=== PATIENT | male | born 1960 | race Caucasian/White ===

== ENCOUNTER 2023-07-31 11:59 | Outpatient (AMB) | payer OTHER, SELFPAY ==
--- NOTE | 2023-07-31 12:01 | MHC.PC.OV ---
Intake Visit Reasons: Right leg pain OK PER AG Coding
[2023-07-31 12:08] VITALS: BP 160/98; PULSE 85; O2SAT 98; BMI 26.6
--- NOTE | 2023-07-31 12:18 | AM.OFFWIN_ITS ---
Intake Vital Signs 07/31/23 12:08 Height 5 ft 8 in Weight 175 lb BMI 26.6 BP 160/98 H Blood Pressure Location Rt brachial Position Sitting Pulse 85 Pulse Source Pulse Oximeter Pulse Oximetry (%) 98 Oxygen Delivery Method Room Air Intake Visit Reasons: Right leg pain OK PER AG Allergies No Known Allergies Allergy (Verified 07/31/23 12:11) Medication List - Last Reconciled 07/31/23 by Ephraim Herron MD No Known Home Meds HPI Right leg pain OK PER AG HPI Details Patient is 63 year gentleman came in today to be evaluated for his right leg pain Patient says that 1 month ago he had lower back pain and he was off work for 2 weeks He went back to work, during that time there was no strong so he shoveled snow as well Next day he started having pain in his right leg all the way from upper back leg down to his feet Patient has a tenderness with calf palpation His back range of motion is intact Straight leg is slightly positive I am ordering stat ultrasound of his right lower leg to rule out DVT X-ray of lumbar spine ordered as well his blood pressure is elevated however patient says that he do not have hypertension Last time he was seen by a primary care was in August of 2018 at that time his blood pressure was 1 followed by 74 He has been taking ibuprofen that was given to him by medics when he was saritaa lionel 10 days ago Patient was sent from work for evaluation of right leg pain Ibuprofen has helped just a little bit but pain continues I have changed ibuprofen to diclofenac 75 mg b.i.d. with food Along with cyclobenzaprine 10 mg b.i.d. as needed Patient is to follow with the primary care Review of Systems Const Denies chills and Denies fever(s) ENT Denies epistaxis and Denies nasal discharge Card Denies chest pain Resp Denies chest congestion, Denies cough and Denies hemoptysis GI Denies diarrhea and Denies nausea Skin/Breast Denies rash Neuro Reports no additional complaints Psych Reports no additional complaints Endo Reports no additional complaints Physical Exam Vital Signs: Last Vital Signs Pulse 85 07/31/23 12:08 BP 160/98 H 07/31/23 12:08 Pulse Ox 98 07/31/23 12:08 Oxygen Delivery Method Room Air 07/31/23 12:08 BMI result Body Mass Index 26.6 Const General: cooperative, comfortable and no acute distress Orientation/consciousness: patient oriented x3 HEENT Head: Yes normocephalic Eyes General: appearance normal, both eyes and all related structures Neck Other: Supple Neck: Yes supple Resp Effort & Inspection: normal respiratory effort, no cough and no stridor Back/Spine/Pelvis Other: No pain with percussion lumbar spine, range of motion intact Skin General skin exam: turgor normal Neuro Other: Strength equal both lower extremity, sensory grossly intact, straight leg slightly positive right side General: patient oriented x3, tone normal and moves all extremities Extrem Other: Mild calf tenderness with pressure right side Psych Other: Normal effect, speech clear Assessment & Plan Assessment & Plan (1) Leg pain, right: Code(s): M79.604 - Pain in right leg (2) Lumbar pain: Code(s): M54.50 - Low back pain, unspecified (3) Leg heaviness: Code(s): R29.898 - Other symptoms and signs involving the musculoskeletal system (4) Tenderness of right calf: Code(s): M79.661 - Pain in right lower leg Plan Patient is 63 year gentleman came in today to be evaluated for his right leg pain Patient says that 1 month ago he had lower back pain and he was off work for 2 weeks He went back to work, during that time there was no strong so he shoveled snow as well Next day he started having pain in his right leg all the way from upper back leg down to his feet Patient has a tenderness with calf palpation His back range of motion is intact Straight leg is slightly positive I am ordering stat ultrasound of his right lower leg to rule out DVT X-ray of lumbar spine ordered as well his blood pressure is elevated however patient says that he do not have hypertension Last time he was seen by a primary care was in August of 2018 at that time his blood pressure was 1 followed by 74 He has been taking ibuprofen that was given to him by medics when he was evaluated 10 days ago Patient was sent from work for evaluation of right leg pain Ibuprofen has helped just a little bit but pain continues I have changed ibuprofen to diclofenac 75 mg b.i.d. with food Along with cyclobenzaprine 10 mg b.i.d. as needed Patient is to follow with the primary care Orders: Orders US venous duplex LE RT Today M79.604 - Pain in right leg XR lumbar spine 2-3V Today M54.50 - Low back pain, unspecified Complete Blood Count Auto Diff Today M54.50 - Low back pain, unspecified, M79.604 - Pain in right leg Comprehensive Met. Panel Today M54.50 - Low back pain, unspecified, M79.604 - Pain in right leg Medications: New cyclobenzaprine 10 mg PO BID PRN 20 tabs 0RF muscle spasm 10 days diclofenac sodium 75 mg PO BID 20 tabs 0RF pain 10 days Coding Level of Care Code New Pt Level 5 (42209) Diagnoses Leg pain, right M79.604 Lumbar pain M54.50 Leg heaviness R29.898 Tenderness of right calf M79.661 Time Spent (min) 40 Comment 15 with patient, 5 charting, 20 minute arranging for stat ultrasound
== END 2023-07-31 15:08 | disposition home or self-care (01) ==
PROVIDERS: PCP Internal Medicine; Visit Provider Internal Medicine
DX: M54.50 Low back pain, unspecified (principal); R29.898 Other symptoms and signs involving the musculoskeletal system; M79.661 Pain in right lower leg
CPT/HCPCS: 99203

== ENCOUNTER 2023-07-31 12:48 | Outpatient (REF) | payer OTHER, SELFPAY ==
--- NOTE | ~2023-07-31 | XR_ITS ---
EXAMINATION: XR LUMBOSACRAL SPINE CLINICAL INFORMATION: Lower back pain. COMPARISON: None available. TECHNIQUE: AP and lateral views of the lumbar spine and lateral view of the lumbosacral junction. FINDINGS: The vertebral bodies and posterior elements are normal. The disc spaces are preserved and the vertebral alignment is normal. There is minimal anterior spondylosis of the L5 upper and lower endplates. The paraspinal soft tissues are normal. XR/XR lumbar spine 2-3V IMPRESSION: There is minimal anterior spondylosis of the L5 upper and lower endplates. The examination is otherwise unremarkable.
--- NOTE | ~2023-07-31 | US_ITS ---
EXAMINATION: RIGHT LOWER EXTREMITY DEEP VENOUS ULTRASOUND CLINICAL INFORMATION: Right leg pain COMPARISON: None. TECHNIQUE: Duplex Doppler imaging with compression maneuvers were performed of the right lower extremity deep venous system. FINDINGS: The visualized common femoral, femoral and popliteal veins demonstrate normal compressibility and color flow without evidence of venous thrombosis. Visualized portions of the calf veins demonstrate normal color fill-in suggesting patency. There is no evidence of a Gan's cyst. US/US venous duplex LE RT IMPRESSION: No evidence of deep venous thrombosis involving the right lower extremity.
[2023-07-31 13:36] LABS: MANUAL DIFF FLAG NO
[2023-07-31 13:48] LABS: Basophils Percent Auto 0.3 % (0-2); Eosinophils Absolute Auto 0.1 X10*3/uL (0.0-0.4); Hematocrit 43.3 % (42.0-52.0); Hemoglobin 14.1 g/dl (14.0-18.0); Imm Gran Abs Auto 0.04 X10*3/uL (0.00-0.03); Imm Gran Pct Auto 0.4 % (0.0-0.4); Lymphocytes Absolute Auto 3.2 X10*3/uL (1.2-4.9); Lymphocytes Percent Auto 32.3 % (20-40); Mean Corpuscular HGB Conc 32.6 g/dl (31.0-36.0); Mean Corpuscular Hemoglobin 26.9 pg (27.0-33.0); Mean Corpuscular Volume 82.5 fL (80.0-98.0); Mean Platelet Volume 9.9 fL (9.4-12.4); Monocytes Absolute Auto 0.7 X10*3/uL (0.1-1.2); Monocytes Percent Auto 7.1 % (2-11); Neutrophils Absolute Auto 5.8 x10*3/uL (2.0-8.3); Neutrophils Percent Auto 58.9 % (45-73); Platelet Count 290 X10*3/uL (160-400); Red Blood Count 5.25 X10*6/uL (4.60-5.80); Red Cell Distribution Width 11.9 % (11.0-16.0); White Blood Count 9.8 X10*3/uL (4.8-10.8)
[2023-07-31 15:10] LABS: Alanine Aminotransferase 15 U/L (0-40); Albumin Level 4.7 g/dL (3.5-5.0); Alkaline Phosphatase 75 U/L (39-117); Anion Gap 11 (12-20); Aspartate Amino Transferase 12 U/L (5-37); Bilirubin Total 0.4 mg/dL (0.0-1.0); Blood Urea Nitrogen 16 mg/dL (9-16); Calcium 9.5 mg/dL (8.4-10.2); Carbon Dioxide 29 mmol/L (22-29); Chloride 106 mmol/L (96-108); Estimated Glomerular Filt Rate > 60; Glucose Random 80 mg/dL (60-115); Sodium 142 mmol/L (135-145); Total Protein 7.8 g/dL (6.5-8.0)
== END 2023-07-31 12:49 | disposition home or self-care (01) ==
LOC: HO.HMGCX 12:48
PROVIDERS: PCP Internal Medicine; Visit Provider Internal Medicine
DX: M79.604 Pain in right leg (principal); M54.50 Low back pain, unspecified
CPT/HCPCS: 36415; 72100; 80053; 85025; 93971

== ENCOUNTER 2023-08-06 08:47 | Outpatient (AMB) | payer OTHER, SELFPAY ==
[2023-08-06 08:51] VITALS: BP 142/100; PULSE 87; O2SAT 99; BMI 27.1
--- NOTE | 2023-08-06 08:51 | MHC.PC.OV ---
Vital Signs 08/06/23 08:51 Height 5 ft 8 in Weight 178 lb 8 oz BMI 27.1 BP 142/100 H Blood Pressure Location Lt brachial Position Sitting Pulse 87 Pulse Source Pulse Oximeter Pulse Oximetry (%) 99 Oxygen Delivery Method Room Air Intake Visit Reasons: Est Care/ Follow up Walk-in Clearance work Allergies No Known Allergies Allergy (Verified 08/06/23 09:04) Medication List - Last Reconciled 08/06/23 by OSBALDO Courtney cyclobenzaprine 10 mg PO BID PRN 10 days diclofenac sodium 75 mg PO BID 10 days Tobacco use date assessed: 08/06/23 Dental Screening Dental Screen Date: 08/06/23 Did you have a dental visit in the last 12 months?: Yes Did you have a dental problem in the last 6 months where you did not have access to dental care?: No Was dental information given to patient?: Patient has dentist HPI HPI Comments History of Present Illness Details Patient is a 63-year-old male here to establish care. The patient was seen in the walk-in 6 days ago for lower back pain that radiated all the way down his right leg. He stated that this had been after shoveling snow for various hours. He was given an ultrasound to rule out DVT and an x-ray of his lumbar spine. Patient did not have DVT, and x-ray demonstrated minimal anterior spondylosis of L5. Patient's chief complaint is lower back pain that has improved since his visit to the walk-in. He also admits radiculopathy down his right leg. He has been taking cyclobenzaprine p.r.n. at night, and diclofenac with good effect. He currently works as a package maker for [employer] and his time resting over the past 5 days has helped his symptoms a lot. Patient denies any difficulty with urination, shortness of breath, chest pain. Patient denies saddle numbness. Patient has no history of similar injury before. Patient is denying physical therapy at this time. He states that his lower back pain is improved over the last few days and he believes with a few more days rest he should be back to baseline. Patient is up-to-date with his immunizations. [facility] Social History Housing: House Patient Tobacco Use Status: Current everyday Tobacco user e-Cigarette/Vaping Use: Never Used service: No Current occupational status: employed Cognitive needs: No Hearing needs: No Vision needs: No Questionnaire PHQ-9 Over the last 2 weeks, how often have you been bothered by any of the following problems? 1. Little interest or pleasure in doing things: not at all 2. Feeling down, depressed, or hopeless: not at all 3. Trouble falling or staying asleep, or sleeping too much: several days 4. Feeling tired or having little energy: several days 5. Poor appetite or overeating: not at all 6. Feeling bad about yourself - or that you are a failure or have let yourself or your family down: not at all 7. Trouble concentrating on things, such as reading the newspaper or watching television: not at all 8. Moving or speaking so slowly that other people could have noticed. Or the opposite - being so fidgety or restless that you have been moving around a lot more than usual: not at all 9. Thoughts that you would be better off or of hurting yourself in some way: not at all Total score: 2 Depression Screening Interpretation: Negative Depression Screening Done: Yes 29002 - PHQ-9 Billing: Yes Source: Developed by Drs. Zain Cooper, Yuki Hansen, Rashi Clayton and colleagues, with an educational alejandra from [email or web address]. Thrive Questionnaire Date Thrive assessed: 08/06/23 I am a: Patient What is your living situation today?: I have a steady place to live Within the past 12 months, did the food you bought not last and you didn't have the money to get more?: Never true Within the past 12 months, did you worry whether your food would run out before you got money to buy more?: Never true Do you have trouble paying for medicines?: No Do you have trouble getting transportation to medical appointments?: No Do you have trouble paying your heating and electricity bill?: No Do you have trouble taking care of your child, family member or friend?: No Do you have trouble with day-to-day activities such as bathing, preparing meals, shopping, managing finances, etc.?: No Are you currently unemployed and looking for a job?: No Are you interested in more education?: No Please select the resources that you would like help with: None Currently or been in a relationship where the following occur: no concerns reported THRIVE Score: 0 AUDIT C Alcohol Use Questionnaire (AUDIT-C) 1. How often do you have a drink containing alcohol?: Never 3. How often do you have six or more drinks on one occasion?: Never Total Score: 0 Score Reviewed/Action Taken: Yes YEFRI-7 AMB Questionnaire YEFRI-7 Date YEFRI - 7 assessed: 08/06/23 Feeling nervous, anxious, or on edge: 0 = Not at all Not being able to stop or control worryin = Not at all Worrying too much about different things: 0 = Not at all Trouble relaxin = Not at all Being so restless that it is hard to sit still: 0 = Not at all Becoming easily annoyed or irritable: 0 = Not at all Feeling afraid as if something awful might happen: 0 = Not at all Total YEFRI-7 score (0-4 normal; 5-9 mild; 10-14 moderate; 15-21 severe): 0 Source: Developed by Drs. Zain Cooper, Yuki Hansen, Rashi Clayton and colleagues, with an educational alejandra from [email or web address]. YEFRI-7 Assessment Billing YEFRI-7 Assessment Tool: YEFRI-7 Assessment 31904 Review of Systems Const Details: Constitutional : No Weight loss, No Fever, No Chills, No Fatigue, No Malaise Cardiovascular : No Chest Pain, No SOB, No Dyspnea on Exertion, No Orthopnea, No Edema, No Palpitations Respiratory : No Cough, No Sputum, No Wheezing Gastrointestinal : No Nausea, No Vomiting, No Diarrhea, No Constipation, No abdominal Pain, No Hematochezia, No Melena Genitourinary : No Dysuria, No Urinary Frequency, No Hematuria, Musculoskeletal : Admits some lower back discofort with movement. Skin : No Skin Lesions, No rash Neuro : No Weakness,Admits some tingling down right leg, No Dizziness, No Headache Psych : No Anxiety/Panic, No Depression Heme/Lymph: No Bruising, No Bleeding,No Lymphadenopathy Endocrine : No Polyuria, No Polydipsia All other systems reviewed and are negative Physical exam (Primary Care) Vital Signs: Last Vital Signs Pulse 87 08/06/23 08:51 BP 142/100 H 08/06/23 08:51 Pulse Ox 99 08/06/23 08:51 Oxygen Delivery Method Room Air 08/06/23 08:51 Care Plan Goal for BP management: Patient declined BP medicine at this time. BMI result Body Mass Index 27.1 Tobacco/Smoking Status: Tobacco use Status Tobacco use date assessed 08/06/23 08/06/23 08:53 Patient Tobacco Use Status Current everyday Tobacco 08/06/23 08:53 e-Cigarette/Vaping Use Never Used 08/06/23 08:53 PHQ-9: PHQ-9 Score PHQ-9: Total score 2 08/06/23 08:55 Depression Screening Interpretation: Negative Thrive Assessment: Date of Thrive Assessment Date Thrive assessed 08/06/23 08/06/23 08:55 Currently or been in a relationship where the following occur: no concerns reported Const General: cooperative and no acute distress Orientation/consciousness: patient oriented x3 Limitations: no limitations Neck Neck: Yes normal visual inspection and Yes full ROM Resp Auscultation: diminished lung sounds bilateral in the upper lung rajput Cardio Rate: regular rate Rhythm: regular rhythm Heart sounds: S1 normal heart sound present and S2 normal heart sound present General: Yes no CVA tenderness Back/Spine/Pelvis Back: no CVA tenderness Cervical Spine: normal cervical lordosis and cervical ROM normal Thoracic/Lumbar Spine: thoracic and lumbar spine normal to inspection, thoraco-lumbar ROM normal and straight leg raise positive right Skin General skin exam: no rashes or lesions noted Neuro General: patient oriented x3 and CN's II-XI intact bilaterally Gait exam (Neuro): Normal gait present Motor exam (neuro): 5/5 motor strength present throughout Deep tendon reflexes (DTR's): Right patellar reflex intensity grade: 2+ and Left patellar reflex intensity grade: 2+ Extrem Right lower extremity: normal to inspection and full ROM Psych Thought content: Normal thought content present Insight: Good insight present (Psych) Judgement: Good judgement present (Psych) Assessment and Plan Assessment & Plan (1) Lumbar pain: Comment: Patient will continue to utilize medications given to him at the walk-in clinic. Patient has been educated on side effects of these medications and how to take them properly. He will continue to rest. Patient has been educated on signs of worsening symptoms when to report to the office or when to present to the ED. Code(s): M54.50 - Low back pain, unspecified Plan: Take your medications as prescribed. If you were prescribed antibiotics today, it is important that you take your medication to their entirety, do not skip any doses, do not finish them early. Follow-up with your primary care provider this week. Return to the emergency department with new or worsening symptoms. Such as fevers, chills, chest pain, shortness of breath, nausea, vomiting, dizziness, headache, vision changes, lethargy In case of emergency call 911 Plan Patient does not improve the next week he will agree to physical therapy. Patient will have physical and 4 months Coding Level of Care Code Est Pt Level 3 (47402) Diagnoses Lumbar pain M54.50 Additional Codes YEFRI-7 Assessment Billing - YEFRI-7 Assessment Tool: YEFRI-7 Assessment 27099 ([id number]) Time Spent (min) 35
== END 2023-08-06 16:04 | disposition home or self-care (01) ==
PROVIDERS: PCP Internal Medicine; Visit Provider Nurse Practitioner Primary Care
DX: Z00.00 Encounter for general adult medical examination without abnormal findings (principal); M54.50 Low back pain, unspecified
CPT/HCPCS: 99396

== ENCOUNTER 2023-08-15 10:47 | Outpatient (AMB) | payer OTHER, SELFPAY ==
--- NOTE | 2023-08-15 10:49 | MHC.PC.OV ---
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 Accompanied by: Self / Same As Patient Allergies No Known Allergies Allergy (Verified 08/15/23 11:22) Medication List - Last Reconciled 08/15/23 by OSBALDO Courtney No Known Home Meds Tobacco use date assessed: 08/15/23 Dental Screening Dental Screen Date: 08/15/23 Did you have a dental visit in the last 12 months?: Yes Did you have a dental problem in the last 6 months where you did not have access to dental care?: No Was dental information given to patient?: Patient has dentist HPI HPI Comments History of Present Illness Details Patient is a 63-year-old male in today for follow-up for lower back pain. 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 He has been seen in office and our walk-in clinic for complaints of lower back pain which radiates down his right leg. Patient had x-ray completed, was given medication. He states today that his symptoms have not improved, and that now he would like to try pursuing physical therapy, will refer. He states that he did get relief from the medication, but that the discomfort would return as soon as the medication wore off. Looking to find a longer-term solution. Denies any numbness, tingling, chest pain, shortness a breath, nausea, vomiting, diarrhea PFSH Surgical History No pertinent past surgical history Social History Housing: House Patient Tobacco Use Status: Current everyday Tobacco user e-Cigarette/Vaping Use: Never Used service: No Current occupational status: employed Cognitive needs: No Hearing needs: No Vision needs: No Questionnaire Thrive Questionnaire Date Thrive assessed: 08/06/23 YEFRI-7 AMB Questionnaire YEFRI-7 Date YEFRI - 7 assessed: 08/06/23 Source: Developed by Drs. Zain Cooper, Yuki Hansen, Rashi Clayton and colleagues, with an educational alejandra from [employer]. Review of Systems Const Details: Constitutional : No Weight loss, No Fever, No Chills, No Fatigue, No Malaise Cardiovascular : No Chest Pain, No SOB, No Dyspnea on Exertion, No Orthopnea, No Edema, No Palpitations Respiratory : No Cough, No Sputum, No Wheezing Genitourinary : No Dysuria, No Urinary Frequency, No Hematuria, Musculoskeletal : Admits lower back pain which radiates down right leg. Skin : No Skin Lesions, No rash Neuro : No Weakness, No Numbness, No Dizziness, No Headache Psych : No Anxiety/Panic, No Depression Heme/Lymph: No Bruising, No Bleeding,No Lymphadenopathy Endocrine : No Polyuria, No Polydipsia All other systems reviewed and are negative Physical exam (Primary Care) Vital Signs: Last Vital Signs Pulse 82 08/15/23 10:51 BP 140/86 H 08/15/23 10:51 Pulse Ox 98 08/15/23 10:51 BMI result Body Mass Index 27.1 Tobacco/Smoking Status: Tobacco use Status Tobacco use date assessed 08/15/23 08/15/23 10:57 Patient Tobacco Use Status Current everyday Tobacco 08/15/23 10:51 e-Cigarette/Vaping Use Never Used 08/15/23 10:51 Thrive Assessment: Date of Thrive Assessment Date Thrive assessed 08/06/23 08/15/23 10:51 Const Other: Appearance: Alert.? Oriented X3.? No acute distress.? CVS: Normal heart rate and rhythm.? Pulses normal.? Respiratory: No respiratory distress.? Breath sounds normal.? Skin: Skin warm and dry.? Normal skin color.? Normal skin turgor.? Extremities: No lower extremity edema.? No calf ttp. 5/5 strength to bilateral upper and lower extremities Back: No midline tenderness, no C-spine tenderness, Limited range of motion with flexion and extension. Positive straight leg test on right leg. Neuro: Oriented X 3.? No motor deficit.? No sensory deficit. CN 2-12 intact Assessment and Plan Assessment & Plan (1) Lumbar pain: Comment: Patient was given cyclobenzaprine and naproxen to be taken as directed. Will give referral to physical therapy. Explained to patient that if physical therapy does not help, may need to order MRI. Patient has been educated on signs of worsening symptoms and when to report back to the walk-in or when to present to the ED. Code(s): M54.50 - Low back pain, unspecified Plan: Take your medications as prescribed. If you were prescribed antibiotics today, it is important that you take your medication to their entirety, do not skip any doses, do not finish them early. Follow-up with your primary care provider this week. Return to the emergency department with new or worsening symptoms. Such as fevers, chills, chest pain, shortness of breath, nausea, vomiting, dizziness, headache, vision changes, lethargy In case of emergency call 911 Plan Follow-up in 3 months Orders: Orders PT Evaluation and Treatment Today M54.50 - Low back pain, unspecified Medications: New naproxen 500 mg PO BID PRN 20 tabs 0RF pain cyclobenzaprine 10 mg PO BEDTIME PRN 10 tabs 0RF muscle spasm Coding Level of Care Code Est Pt Level 3 (43511) Diagnoses Lumbar pain M54.50
[2023-08-15 10:51] VITALS: BP 140/86; PULSE 82; O2SAT 98; BMI 27.1
== END 2023-08-15 12:42 | disposition home or self-care (01) ==
PROVIDERS: PCP Internal Medicine; Visit Provider Nurse Practitioner Primary Care
DX: M54.50 Low back pain, unspecified (principal)
CPT/HCPCS: 99213

== ENCOUNTER 2023-09-03 12:18 | Outpatient (AMB) | payer OTHER, SELFPAY ==
[2023-09-03 12:23] VITALS: BP 130/86; PULSE 83; O2SAT 97; BMI 26.8
--- NOTE | 2023-09-03 12:23 | A.OFFPC_ITS ---
Vital Signs 09/03/23 12:23 Height 5 ft 8 in Weight 176 lb 4 oz BMI 26.8 BP 130/86 Blood Pressure Location Rt brachial Position Sitting Pulse 83 Pulse Source Pulse Oximeter Pulse Oximetry (%) 97 Oxygen Delivery Method Room Air Intake Visit Reasons: Follow up work restrictions Intake Note: Pt is here to follow up for his restrictions for work Allergies No Known Allergies Allergy (Verified 09/03/23 12:29) Medication List - Last Reconciled 09/03/23 by OSBALDO Courtney No Known Home Meds Tobacco use date assessed: 09/03/23 Dental Screening Dental Screen Date: 09/03/23 Did you have a dental visit in the last 12 months?: Yes Did you have a dental problem in the last 6 months where you did not have access to dental care?: No Was dental information given to patient?: Patient has dentist HPI HPI Comments History of Present Illness Details Patient is a 63-year-old male here for follow-up visit for return to work with restrictions. 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 Patient has had lower back pain for the past month. Some good relief with naproxen, starting physical therapy. Patient still needs restrictions for work, should not lift more than 10 lbs. Patient will be re-evaluated to 1 month. He denies numbness and tingling. [facility] Surgical History No pertinent past surgical history Social History Housing: House Patient Tobacco Use Status: Former Tobacco user e-Cigarette/Vaping Use: Never Used service: No Current occupational status: employed Cognitive needs: No Hearing needs: No Vision needs: No Questionnaire PHQ-9 Over the last 2 weeks, how often have you been bothered by any of the following problems? 1. Little interest or pleasure in doing things: not at all 2. Feeling down, depressed, or hopeless: not at all 3. Trouble falling or staying asleep, or sleeping too much: not at all 4. Feeling tired or having little energy: not at all 5. Poor appetite or overeating: not at all 6. Feeling bad about yourself - or that you are a failure or have let yourself or your family down: not at all 7. Trouble concentrating on things, such as reading the newspaper or watching television: not at all 8. Moving or speaking so slowly that other people could have noticed. Or the opposite - being so fidgety or restless that you have been moving around a lot more than usual: not at all 9. Thoughts that you would be better off or of hurting yourself in some way: not at all Total score: 0 Depression Screening Interpretation: Negative Depression Screening Done: Yes 08480 - PHQ-9 Billing: Yes Source: Developed by Drs. Zain Cooper, Yuki Hansen, Rashi Clayton and colleagues, with an educational alejandra from [employer]. Thrive Questionnaire Date Thrive assessed: 08/06/23 AUDIT C Alcohol Use Questionnaire (AUDIT-C) 1. How often do you have a drink containing alcohol?: Never 3. How often do you have six or more drinks on one occasion?: Never Total Score: 0 YEFRI-7 AMB Questionnaire YEFRI-7 Date YEFRI - 7 assessed: 08/06/23 Feeling nervous, anxious, or on edge: 0 = Not at all Not being able to stop or control worryin = Not at all Worrying too much about different things: 0 = Not at all Trouble relaxin = Not at all Being so restless that it is hard to sit still: 0 = Not at all Becoming easily annoyed or irritable: 0 = Not at all Feeling afraid as if something awful might happen: 0 = Not at all Total YEFRI-7 score (0-4 normal; 5-9 mild; 10-14 moderate; 15-21 severe): 0 Source: Developed by Drs. Zain Cooper, Yuki Hansen, Rashi Clayton and colleagues, with an educational alejandra from [employer]. YEFRI-7 Assessment Billing YEFRI-7 Assessment Tool: YEFRI-7 Assessment 06353 Review of Systems Const Details: Constitutional : No Weight loss, No Fever, No Chills, No Fatigue, No Malaise Cardiovascular : No Chest Pain, No SOB, No Dyspnea on Exertion, No Orthopnea, No Edema, No Palpitations Respiratory : No Cough, No Sputum, No Wheezing Musculoskeletal : Admits lower back pain Neuro : No Weakness, No Numbness, No Dizziness, No Headache Psych : No Anxiety/Panic, No Depression All other systems reviewed and are negative Physical exam (Primary Care) BMI result Body Mass Index 26.8 Tobacco/Smoking Status: Tobacco use Status Tobacco use date assessed 08/15/23 08/15/23 10:57 Patient Tobacco Use Status Current everyday Tobacco 08/15/23 10:51 e-Cigarette/Vaping Use Never Used 08/15/23 10:51 Depression Screening Interpretation: Negative Thrive Assessment: Date of Thrive Assessment Date Thrive assessed 08/06/23 08/15/23 10:51 Const Other: Appearance: Alert.? Oriented X3.? No acute distress.? CVS: Normal heart rate and rhythm.? Pulses normal.? Respiratory: No respiratory distress.? Breath sounds normal.? ?Back: No midline tenderness, no C-spine tenderness, Linited range of motion to flexion, extension, and rotation., no CVA tenderness bilaterally Neuro: Oriented X 3.? No motor deficit.? No sensory deficit. CN 2-12 intact Assessment and Plan Assessment & Plan (1) Lumbar pain: Comment: Patient just recently got new inserts for shoes. Has been using naproxen with little relief will try meloxicam. Patient has been educated on the side effects of these medications. He is currently going through course of physical therapy. Will give noticed for his work to have light duty. No lifting more than 5 lb. No standing for more than 15 minutes at a time. No bending below the knee. Code(s): M54.50 - Low back pain, unspecified Plan: Take your medications as prescribed. If you were prescribed antibiotics today, it is important that you take your medication to their entirety, do not skip any doses, do not finish them early. Follow-up with your primary care provider this week. Return to the emergency department with new or worsening symptoms. Such as fevers, chills, chest pain, shortness of breath, nausea, vomiting, dizziness, headache, vision changes, lethargy In case of emergency call 911 Plan Patient will follow-up in 1 month for reassessment. Medications: New meloxicam Do not combine with other NSAIDS 15 mg PO DAILY PRN 30 tabs 0RF pain, moderate Coding Level of Care Code Est Pt Level 3 (71187) Diagnoses Lumbar pain M54.50 Additional Codes YEFRI-7 Assessment Billing - YEFRI-7 Assessment Tool: YEFRI-7 Assessment 10014 ([id number]) Time Spent (min) 25
== END 2023-09-03 12:49 | disposition home or self-care (01) ==
PROVIDERS: PCP Nurse Practitioner Primary Care; Visit Provider Nurse Practitioner Primary Care
DX: M54.50 Low back pain, unspecified (principal); Z04.2 Encounter for examination and observation following work accident
CPT/HCPCS: 99213

== ENCOUNTER 2023-09-27 10:00 | Outpatient (RCR) | payer OTHER, SELFPAY ==
--- NOTE | 2023-08-31 09:50 | MHC.PT.EP ---
[facility] [place] [facility] [place] [facility] [place] Office [address] Bhargavi Baca [address] [phone] F: [phone] F: [phone] F: [phone] F: [phone] Physical Therapy Plan of Care Date of Evaluation: 08/31/23 Date of Surgery: n/a Diagnosis: low back pain Assessment: Patient is a 63 year old male presenting to PT with complaints of pain in his low back. Pt reports onset of pain began about 6 weeks ago due to lifting at work. He presents today with impairments in pain, lumbar ROM, core strength, hip strength, posture. 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 Pt expresses intermediate project manager goal of reducing pain, and is motivated to work towards this in PT. Clinical presentation today is most consistent with signs and sx associated with low back pain and pt will benefit from skilled PT 2 week x 4 weeks to address the following problems and impairments noted upon evaluation: pain, lumbar ROM, core strength, hip strength, posture. These problems limit the patient with the following functional activities: work, ADLs, reaching, lifting. The prescribed treatment plan of care is medically necessary. Co-morbidities of none were identified and taken into considerations of plan of care. Pt was educated on HEP, role of PT, prognosis, POC. Frequency and Duration: The patient will be seen 2 x week x 4 weeks Short Term Goals: Pt will demonstrate centralization of pain in 2 weeks. Pt will demonstrate improved hip MMT strength by 1/3 grade in 2 weeks. Pt will demonstrate ability to perform PPT with good core control in 2 weeks. Chief Librarian Work With Blind Goals: Pt will demonstrate improved Landon score by 10% in 4 weeks for improved functional mobility. Pt will demonstrate ability to stand to wash dishes with min to no pain/ sx in 4 weeks for improved role at home. Pt will demonstrate ability to work a full day with min to no pain/ worsening sx in 4 weeks for return to work. Treatment Plan: Modalities to reduce pain, spasms and effusion. Manual therapy to restore motion and function. Therapeutic exercise to improve strength and flexibility. Neuromuscular re-education for posture and balance. Therapeutic activities to return to functional activities of daily living. Electronically signed by: Rosita Tatum, PT, DPT, ATC Please sign and return to therapist. Thank you for your referral.
--- NOTE | 2023-09-27 10:53 | MHC.PT.DC ---
[facility] [place] [facility] [place] [facility] [place] [facility] [address] Bhargavi Baca [address] [phone] F: [phone] F: [phone] F: [phone] F: [phone] Physical Therapy Discharge Report Diagnosis: low back pain Date of Surgery: n/a Date of Evaluation: 08/31/23 Date of Discharge: 09/27/23 Treatments to Date: 9 Cancellations to Date: 0 No Shows to Date: 0 Discharge Status: Achieved Goals Improved Function Independent with HEP Recommend MD Follow-up Discharge Summary: 09/27/2023: He has made some progress since start of care but unfortunately his progress appears to have reached a plateau. He continues to feel sx as far as his calf although they are less intense. He has met some of goals but is still experiencing limitations which are preventing him from functioning at his prior level. At this time max benefits of PT have been provided. Skilled PT is no longer indicated as he is no longer making gains. Discussed that if his pain/sx continue to limit him then recommend following up with his doctor for further evaluation and management of his sx. Electronically signed by: Rosita Tatum, PT, DPT, ATC Please sign and return to therapist. Thank you for your referral.
== END 2023-09-27 10:53 | disposition home or self-care (01) ==
LOC: HO.PTCHIC 10:00
PROVIDERS: PCP Nurse Practitioner Primary Care; Visit Provider Nurse Practitioner Primary Care
DX: M54.50 Low back pain, unspecified (principal)
CPT/HCPCS: 97110; 97161

== ENCOUNTER 2023-10-17 07:46 | Outpatient (AMB) | payer OTHER, SELFPAY ==
[2023-10-17 08:08] VITALS: BP 130/82; PULSE 70; O2SAT 97; BMI 27.7
--- NOTE | 2023-10-17 08:08 | A.OFFPC_ITS ---
Vital Signs 10/17/23 08:08 Height 5 ft 8 in Weight 182 lb 2 oz BMI 27.7 BP 130/82 Blood Pressure Location Rt brachial Position Sitting Pulse 70 Pulse Source Pulse Oximeter Pulse Oximetry (%) 97 Oxygen Delivery Method Room Air Intake Visit Reasons: Follow up after PT Intake Note: Pt is here to follow up after he finished PT 2 weeks ago Allergies No Known Allergies Allergy (Verified 10/17/23 08:19) Medication List - Last Reconciled 10/17/23 by OSBALDO Courtney No Known Home Meds Tobacco use date assessed: 10/17/23 Dental Screening Dental Screen Date: 10/17/23 Did you have a dental visit in the last 12 months?: Yes Did you have a dental problem in the last 6 months where you did not have access to dental care?: No Was dental information given to patient?: Patient has dentist HPI HPI Comments History of Present Illness Details Patient is a 63-year-old male here for a follow up visit. Patient has a past medical history of lower back pain and recently completed physical th erapy. Patient had been working on light duty for the past month with restrictions not to lift more than 10 lbs, however, for the past 2 weeks patient has not been all the work due to right SI pain with radiculopathy. Patient is here for evaluation post physical therapy. Patient states that physical therapy has made the pain bearable, however when he has to move or lift objects the pain quickly returns. Patient states that appointment today he has pain in the right SI joint which radiates down the right lower extremity. Patient has taken naproxen in the past with mild effect, he is not interested in continuing that medication. Patient is interested in further treatment. Will give prednisone today, and referral to pain management. [facility] Surgical History No pertinent past surgical history Social History Housing: House Patient Tobacco Use Status: Current everyday Tobacco user Cigarettes Per Day: 6 e-Cigarette/Vaping Use: Never Used service: No Current occupational status: employed Cognitive needs: No Hearing needs: No Vision needs: No Questionnaire Thrive Questionnaire Date Thrive assessed: 08/06/23 YEFRI-7 AMB Questionnaire YEFRI-7 Date YEFRI - 7 assessed: 08/06/23 Source: Developed by Drs. Zain Cooper, Yuki Hansen, Rashi Clayton and colleagues, with an educational alejandra from [employer]. YEFRI-7 Assessment Billing YEFRI-7 Assessment Tool: pt declined-do not bill Review of Systems Const All systems reviewed & are unremarkable except as noted in HPI and below Musc Reports arthralgias (Right SI joint) and Reports radiating pain into limb (Right lower extremity) Physical exam (Primary Care) BMI result Body Mass Index 27.7 Tobacco/Smoking Status: Tobacco use Status Tobacco use date assessed 09/03/23 09/03/23 12:28 Patient Tobacco Use Status Former Tobacco user 09/03/23 12:28 e-Cigarette/Vaping Use Never Used 09/03/23 12:28 Thrive Assessment: Date of Thrive Assessment Date Thrive assessed 08/06/23 09/03/23 12:28 Const General: cooperative and no acute distress Resp Effort & Inspection: normal respiratory effort Auscultation: clear to auscultation bilaterally Cardio Rate: regular rate Rhythm: regular rhythm Heart sounds: S1 normal heart sound present and S2 normal heart sound present General: Yes no CVA tenderness Back/Spine/Pelvis Back: no CVA tenderness Cervical Spine: normal cervical lordosis Sacroiliac joints: on the right tender to palpation and by passive hyperextension of lower ext Extrem Right lower extremity: normal to inspection Left lower extremity: normal to inspection Psych Thought content: Normal thought content present Insight: Good insight present (Psych) Judgement: Good judgement present (Psych) Assessment and Plan Assessment & Plan (1) Back pain with right-sided radiculopathy: Comment: Patient recently completed course of physical therapy with mild improvement. Will give prednisone for radiculopathy. Will order MRI. Will refer to pain management. Code(s): M54.10 - Radiculopathy, site unspecified Plan: Take your medications as prescribed. If you were prescribed antibiotics today, it is important that you take your medication to their entirety, do not skip any doses, do not finish them early. Follow-up with your primary care provider this week. Return to the emergency department with new or worsening symptoms. Such as fevers, chills, chest pain, shortness of breath, nausea, vomiting, dizziness, headache, vision changes, lethargy In case of emergency call 911 Plan Follow-up in 3 months Orders: Orders MR lumbar spine wo con Today M54.10 - Radiculopathy, site unspecified Medications: New prednisone 20 mg PO BID 10 tabs 0RF Coding Level of Care Code Est Pt Level 3 (06747) Diagnoses Back pain with right-sided radiculopathy M54.10 Time Spent (min) 24
== END 2023-10-17 08:40 | disposition home or self-care (01) ==
PROVIDERS: PCP Nurse Practitioner Primary Care; Visit Provider Nurse Practitioner Primary Care
DX: M54.10 Radiculopathy, site unspecified (principal)
CPT/HCPCS: 99213

== ENCOUNTER 2023-11-19 10:43 | Outpatient (AMB) | payer OTHER, SELFPAY ==
--- NOTE | 2023-11-19 10:47 | A.OFFVIS_ITS ---
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 Patient attributes pain due to work-related injury in July at [employer] and has completed physical therapy and NSAIDs and was sent back to work 2 weeks after the injury. Patient reports worsening back pain and onset of right leg pain 1 week after he has returned to work. Patient reports he has off work for PT and significant low back pain, but is able to tolerate light duty with restrictions. His back pain is axial, midline and also radiates into his right lower extremity posteriorly with numbness, tingling in his heel, calf and toes and intermittent squeezing in his right calf. Pain is most severe with prolonged standing, bending, twisting, heavy lifting, pulling, and least severe with sitting or walking. He reports PT has been partially helpful and he continues to do regular home exercise program. Pain affects his ADLs, mobility, functioning, work, sleep, and social interactions. Denies any fever, chills, abdominal or groin pain, gait imbalances, foot drop, bladder or bowel dysfunction or saddle anesthesia. Patient was ordered lumbar spine MRI last month, however this was not completed yet. Patient smokes 1/2 PPD for many years, , uses marijuana from dispensary and denies alcohol consumption or illicit drug use. Oswestry Low Back Disability Score=13 (mild disability) Location: Lower back pain radiates down right leg posteriorly Duration: Work related injury in July, worsening pain >3 months Characteristics of symptom or complaint: Aching, radiating, tingling, shooting, numb, squeezing Aggravating or associated factors: Movement, standing, bending, pulling, lifting, off-loading boxes Relieving factors: Sitting, NSAIDs, ice/heat, rest, activity modifications, prednisone trial Treatment: Physical therapy, home exercise program [facility] Medical History (Updated 11/19/23 @ 13:11 by OSBALDO Bower) Work related injury Back pain with right-sided radiculopathy Sacroiliac joint pain Surgical History No pertinent past surgical history Social History Housing: House Patient Tobacco Use Status: Current everyday Tobacco user Cigarettes Per Day: 6 e-Cigarette/Vaping Use: Never Used service: No Current occupational status: employed Cognitive needs: No Hearing needs: No Vision needs: No Review of Systems Const All systems reviewed & are unremarkable except as noted in HPI and below Physical Exam Vital Signs: Last Vital Signs Pulse 80 11/19/23 10:53 BP 160/91 H 11/19/23 10:53 Pulse Ox 99 11/19/23 10:53 Oxygen Delivery Method Room Air 11/19/23 10:53 BMI result Body Mass Index 27.1 General: Appears afebrile. Alert and oriented. Mood and affect appropriate. Follows and participates in conversation appropriately. Respiratory effort is unlabored. No cough. Able to transition from sit to stand unassisted. Ambulates with bilaterally normal heel strike and toe off. Back/Spine/Pelvis Other: Patient is able to walk and stand on heels and tip toes with mild difficulty on the right otherwise demonstrating good motor tone. No limping. Can flex forward to 65-70 degrees and extend to 5-10 degrees before experiencing lumbar pain, increased pain with forward flexion and bending. Demonstrates 5/5 strength of quadriceps bilaterally as well as flexion/dorsiflexion of bilateral feet against resistance. 2+ pedal pulses bilaterally. Seated straight leg rise with dorsiflexion positive on the right. +2 left +3 right patellar and +1 achilles reflexes bilaterally. Facet loading test positive bilaterally. Fredrick sign, Jewel?s, Pelvic compression and Stinchfield tests are positive on the right. No groin pain with I/E hip rotations. Valsalva maneuver negative. Cervical Spine: cervical ROM normal, No cervical muscular tenderness and No Cervical spine tenderness Thoracic/Lumbar Spine: thoracic and lumbar spine normal to inspection, No Thoracic/lumbar spine scar(s), Lasegue's sign positive (L5-S1) on the right and localized, pain with thoraco-lumbar ROM, paraspinal muscle tenderness on the right greater than left, thoraco-lumbar ROM limited, No thoracic spinal tenderness and lumbar spinal tenderness (L4-S1) Pelvis: buttock tenderness on the right Sacroiliac joints: on the right tender to palpation and on the left nontender Results Reviewed Results Reviewed: XR LUMBOSACRAL SPINE 07/31/23 CLINICAL INFORMATION: Lower back pain. COMPARISON: None available. TECHNIQUE: AP and lateral views of the lumbar spine and lateral view of the lumbosacral junction. FINDINGS: The vertebral bodies and posterior elements are normal. The disc spaces are preserved and the vertebral alignment is normal. There is minimal anterior spondylosis of the L5 upper and lower endplates. The paraspinal soft tissues are normal. IMPRESSION: There is minimal anterior spondylosis of the L5 upper and lower endplates. The examination is otherwise unremarkable. Assessment & Plan Assessment & Plan (1) Back pain with right-sided radiculopathy: Comment: Patient recently completed course of physical therapy with mild improvement. Will give prednisone for radiculopathy. Will order MRI. Will refer to pain management. Code(s): M54.10 - Radiculopathy, site unspecified Category: Medical (2) Intractable low back pain: Code(s): M54.59 - Other low back pain Category: Medical (3) Back pain with right-sided radiculopathy: Comment: Patient recently completed course of physical therapy with mild improvement. Will give prednisone for radiculopathy. Will order MRI. Will refer to pain management. Code(s): M54.10 - Radiculopathy, site unspecified Category: Medical (4) Discogenic low back pain: Code(s): M51.36 - Other intervertebral disc degeneration, lumbar region Category: Medical (5) Sacroiliac joint pain: Code(s): M53.3 - Sacrococcygeal disorders, not elsewhere classified Category: Medical Plan Lumbar spine imaging to assess degree of degenerative changes, any subluxation, listhesis, compression fractures or pars defects. I will also re-submit MRI of the lumbar spine to assess for neural integrity and compression to further evaluate right sided radiculopathy. Patient completed course of physical therapy, NSAIDs, prednisone trial with mild improvement and continues to experience moderate-severe low back pain episodes with any lifting, bending, standing, pulling which limits his normal work performance and affects his ADLs, mobility, sleep and quality of life. Patient will return to the clinic to discuss results of the MRI findings when it is done and consider interventional therapy as indicated. Short script provided for gabapentin. Side effects and precautions discussed with patient. Continue ice/heat applications, Tylenol, NSAIDs, activity modifications-avoid heavy lifting, pulling and bending. All questions and concerns have been answered and patient agreed with the plan. Follow up for MRI/xray results and sooner as needed. Orders: Orders XR lumbar spine 4V min Today M51.36 - Other intervertebral disc degeneration, lumbar region, M54.10 - Radiculopathy, site unspecified MR lumbar spine wo con 10/17/23 M51.36 - Other intervertebral disc degeneration, lumbar region, M54.10 - Radiculopathy, site unspecified, M54.59 - Other low back pain Medications: New gabapentin 300 mg PO BID 30 days 60 caps 0RF pain M54.10 - Radiculopathy, site unspecified Coding Level of Care Code New Pt Level 4 (15795) Diagnoses Back pain with right-sided radiculopathy M54.10 Intractable low back pain M54.59 Discogenic low back pain M51.36 Sacroiliac joint pain M53.3
[2023-11-19 10:53] VITALS: BP 160/91; PULSE 80; O2SAT 99; BMI 27.1
== END 2023-11-19 11:22 | disposition home or self-care (01) ==
PROVIDERS: PCP Nurse Practitioner Primary Care; Visit Provider Nurse Practitioner Family
DX: M54.10 Radiculopathy, site unspecified (principal); M54.59 Other low back pain; M51.36 Other intervertebral disc degeneration, lumbar region; M53.3 Sacrococcygeal disorders, not elsewhere classified
CPT/HCPCS: 99204

== ENCOUNTER 2023-11-19 10:43 | Outpatient (REF) | payer OTHER, SELFPAY ==
--- NOTE | ~2023-11-19 | XR_ITS ---
EXAMINATION: XR LUMBOSACRAL SPINE WITH OBLIQUES CLINICAL INFORMATION: Intervertebral disc degeneration lumbar region, patient states pain management office wants to do a workup for lower back pain. COMPARISON: 07/31/2023 TECHNIQUE: 7 views of the lumbosacral spine. FINDINGS: Slight leftward curvature of the lumbar spine. Atherosclerotic aortoiliac calcifications. Multilevel lumbar spondylosis with moderate loss of disc space at L5-S1. Facet arthritis lower lumbar spine with possible spondylolysis at L5-S1. Mild degenerative changes in the bilateral sacroiliac joints. Alignment maintained on flexion and extension views. XR/XR lumbar spine 4V min IMPRESSION: 1. Multilevel lumbar spondylosis with moderate loss of disc space at L5-S1. 2. Facet arthritis lower lumbar spine with possible spondylolysis at L5-S1.
== END 2023-11-19 10:44 | disposition home or self-care (01) ==
LOC: HO.XRAY 10:43
PROVIDERS: PCP Nurse Practitioner Primary Care; Visit Provider Nurse Practitioner Family
DX: M47.27 Other spondylosis with radiculopathy, lumbosacral region (principal); M47.26 Other spondylosis with radiculopathy, lumbar region
CPT/HCPCS: 72110; 99202

== ENCOUNTER 2024-01-01 10:00 | Outpatient (REF) | payer OTHER, SELFPAY ==
--- NOTE | ~2024-01-01 | MR_ITS ---
EXAMINATION: MR LUMBAR SPINE WITHOUT CONTRAST CLINICAL INFORMATION: Lumbar radiculopathy. COMPARISON: Lumbar spine radiographs from 11/19/2023. TECHNIQUE: MRI of the lumbar spine was obtained using routine sequences without contrast. FINDINGS: Normal anatomic alignment. Moderate disc degeneration at L5-S1. Mild disc degeneration from T11-L5. There is a T2 hyperintense annular fissure at L5-S1. Associated mild mixed Modic type discogenic and plate changes including Modic type I discogenic edema from T11-L1. No additional suspicious marrow edema. The vertebral body heights are well-maintained. The conus medullaris terminates at the level of L1. The distal spinal cord is normal in appearance. Mild edema within the posterior paraspinal musculature from L4-S1. No additional significant abnormalities of the paraspinal musculature. Limited evaluation of the intra-abdominal structures without significant abnormalities. The abdominal aorta is of normal contour and caliber. AXIAL SPINAL LEVELS: L1-L2: Shallow diffuse disc bulge. There is mild bilateral facet joint arthropathy. There is mild to moderate bilateral neural foraminal stenosis. There is no spinal canal stenosis. L2-L3: Mild diffuse disc bulge. There is mild to moderate bilateral facet joint arthropathy. There is mild bilateral neural foraminal stenosis. There is mild narrowing of the subarticular zones with no overt spinal canal stenosis centrally. L3-L4: Shallow diffuse disc bulge. There is mild bilateral facet joint arthropathy. There is mild to moderate bilateral neural foraminal stenosis. There is narrowing of the subarticular zones with no overt spinal canal stenosis centrally. L4-L5: Mild diffuse disc bulge. There is moderate left and mild right facet joint arthropathy. There is moderate bilateral neural foraminal stenosis. There is stenosis of the subarticular zones with mild spinal canal stenosis centrally. L5-S1: Moderate diffuse disc bulge. There is mild bilateral facet joint arthropathy. There is moderate left worse than right neural foraminal stenosis. There is stenosis of the subarticular zones with moderate spinal canal stenosis centrally. MR/MR lumbar spine wo con IMPRESSION: Moderate multilevel degenerative spondyloarthropathy of the lumbar spine as described in detail above. Most notably, there is moderate spinal canal stenosis at L5-S1. Mild spinal canal stenosis at L4-L5. Narrowing/stenoses of the subarticular zones from L2-S1. Mild to moderate neural foraminal stenoses at all lumbar levels.
== END 2024-01-01 10:01 | disposition home or self-care (01) ==
LOC: HO.MRI 10:00
PROVIDERS: PCP Nurse Practitioner Primary Care; Visit Provider Nurse Practitioner Family
DX: M54.10 Radiculopathy, site unspecified (principal); M54.59 Other low back pain; M51.36 Other intervertebral disc degeneration, lumbar region
CPT/HCPCS: 72148

== ENCOUNTER 2024-01-16 08:01 | Outpatient (AMB) | payer OTHER, SELFPAY ==
--- NOTE | 2024-01-16 08:05 | MHC.PC.OV ---
Vital Signs 01/16/24 08:06 Height 5 ft 8 in Weight 180 lb BMI 27.4 BP 148/92 H Blood Pressure Location Lt brachial Position Sitting Pulse 67 Pulse Source Pulse Oximeter Pulse Oximetry (%) 98 Oxygen Delivery Method Room Air Intake Visit Reasons: 3 month follow up Intake Note: pt is here for 3 month f/u Allergies No Known Allergies Allergy (Verified 01/16/24 08:05) Tobacco use date assessed: 01/16/24 Dental Screening Dental Screen Date: 10/17/23 HPI HPI Comments History of Present Illness Details Patient is a 63-year-old male in for a follow-up regarding back pain in the lumbar region. Patient has completed course of physical therapy with mild effect, was given referral to Pain Management who place patient on gabapentin trial as well as obtain MRI. he reports that he has seen Pain Management tomorrow. Patient has hypertension and we discussed the initiation of medication. Patient denies any symptoms of headache, dizziness, chest pain, shortness a breath, nausea, vomiting, diarrhea, or vision changes. Will start the patient on losartan 25 mg p.o. daily. Will have patient blood pressure measurements at home will also have him return in 2 weeks for a blood pressure recheck. He has been educated to provide labs. [facility] Medical History Work related injury Back pain with right-sided radiculopathy Sacroiliac joint pain Surgical History No pertinent past surgical history Social History Housing: House Patient Tobacco Use Status: Current everyday Tobacco user Cigarettes Per Day: 6 e-Cigarette/Vaping Use: Never Used service: No Current occupational status: employed Cognitive needs: No Hearing needs: No Vision needs: No Questionnaire Thrive Questionnaire Date Thrive assessed: 08/06/23 YEFRI-7 AMB Questionnaire YEFRI-7 Date YEFRI - 7 assessed: 08/06/23 Source: Developed by Drs. Zain Cooper, Yuki Hansen, Rsahi Clayton and colleagues, with an educational alejandra from [employer] Review of Systems Const All systems reviewed & are unremarkable except as noted in HPI and below Physical exam (Primary Care) Care Plan Goal for BP management: patient starting on losartan 25 mg p.o. daily. Next steps: Return in 2 weeks for blood pressure recheck Tobacco/Smoking Status: Tobacco use Status Tobacco use date assessed 10/17/23 01/16/24 08:05 Patient Tobacco Use Status Current everyday Tobacco 01/16/24 08:05 e-Cigarette/Vaping Use Never Used 01/16/24 08:05 Thrive Assessment: Date of Thrive Assessment Date Thrive assessed 08/06/23 01/16/24 08:05 Const Other: Appearance: Alert.? Oriented X3.? No acute distress.? Head: Normocephalic, atraumatic, no step-offs or deformities Eyes: Pupils equal, round and reactive to light.? Neck: Normal inspection.? Neck supple.? CVS: Normal heart rate and rhythm.? Pulses normal.? Respiratory: No respiratory distress.? Breath sounds normal.? Neuro: Oriented X 3.? No motor deficit.? No sensory deficit. CN 2-12 intact Assessment and Plan Assessment & Plan (1) Hypertension: Comment: will start patient on losartan 25 mg p.o. daily. Patient has been educated on side effects of this medication. Patient will return to office in 2 weeks for blood pressure recheck Code(s): I10 - Essential (primary) hypertension Qualifiers: Hypertension type: primary hypertension Qualified Code(s): I10 - Essential (primary) hypertension Plan: obtain labs Orders: Orders Complete Blood Count Auto Diff Today Z13.0 - Encounter for screening for diseases of the blood and blood-forming organs and certain disorders involving the immune mechanism Comprehensive Met. Panel Today Z91.89 - Other specified personal risk factors, not elsewhere classified Medications: New losartan 25 mg PO DAILY 30 tabs 0RF Coding Level of Care Code Est Pt Level 3 (72027) Diagnoses Primary hypertension I10 Hypertension type: primary hypertension Time Spent (min) 24
[2024-01-16 08:06] VITALS: BP 148/92; PULSE 67; O2SAT 98; BMI 27.4
== END 2024-01-16 08:43 | disposition home or self-care (01) ==
PROVIDERS: PCP Nurse Practitioner Primary Care; Visit Provider Nurse Practitioner Primary Care
DX: I10 Essential (primary) hypertension (principal)
CPT/HCPCS: 99213

== ENCOUNTER 2024-01-17 09:19 | Outpatient (AMB) | payer OTHER, SELFPAY ==
--- NOTE | 2024-01-17 09:24 | MHC.OFFVIS ---
Vital Signs 01/17/24 09:27 Height 5 ft 8 in Weight 184 lb BMI 28.0 BP 156/90 H Blood Pressure Location Rt brachial Position Sitting Pulse 81 Pulse Source Pulse Oximeter Pulse Oximetry (%) 97 Oxygen Delivery Method Room Air Intake Visit Reasons: Discuss MRI Results Intake Note: Pain today 07/18 Document Controller Required: No Accompanied by: Self / Same As Patient Allergies No Known Allergies Allergy (Verified 01/17/24 09:28) HPI Comments Details: Patient presents today for follow-up to discuss recent lumbar spine MRI results. Denies any recent cough, cold, infection, fever, any significant changes in her medical history, medications or recent hospitalizations. PRIOR: perez is a pleasant 63 years old male presents today for initial evaluation of worsening low back pain with right leg pain. Patient attributes pain due to work-related injury in July at [employer] and has completed physical therapy and NSAIDs and was sent back to work 2 weeks after the injury. Patient reports worsening back pain and onset of right leg pain 1 week after he has returned to work. Patient reports he has off work for PT and significant low back pain, but is able to tolerate light duty with restrictions. His back pain is axial, midline and also radiates into his right lower extremity posteriorly with numbness, tingling in his heel, calf and toes and intermittent squeezing in his right calf. Pain is most severe with prolonged standing, bending, twisting, heavy lifting, pulling, and least severe with sitting or walking. He reports PT has been partially helpful and he continues to do regular home exercise program. Pain affects his ADLs, mobility, functioning, work, sleep, and social interactions. Denies any fever, chills, abdominal or groin pain, gait imbalances, foot drop, bladder or bowel dysfunction or saddle anesthesia. Patient was ordered lumbar spine MRI last month, however this was not completed yet. Patient smokes 1/2 PPD for many years, , uses marijuana from dispensary and denies alcohol consumption or illicit drug use. Oswestry Low Back Disability Score=13 (mild disability) Location: Lower back pain radiates down right leg posteriorly Duration: Work related injury in July, worsening pain >3 months Characteristics of symptom or complaint: Aching, radiating, tingling, shooting, numb, squeezing Aggravating or associated factors: Movement, standing, bending, pulling, lifting, off-loading boxes Relieving factors: Sitting, NSAIDs, ice/heat, rest, activity modifications, prednisone trial Treatment: Physical therapy, home exercise program [facility] Medical History Work related injury Back pain with right-sided radiculopathy Sacroiliac joint pain Surgical History No pertinent past surgical history Social History Housing: House Patient Tobacco Use Status: Current everyday Tobacco user Cigarettes Per Day: 6 e-Cigarette/Vaping Use: Never Used service: No Current occupational status: employed Cognitive needs: No Hearing needs: No Vision needs: No Review of Systems Const All systems reviewed & are unremarkable except as noted in HPI and below Physical Exam Vital Signs: Last Vital Signs Pulse 81 01/17/24 09:27 BP 156/90 H 01/17/24 09:27 Pulse Ox 97 01/17/24 09:27 Oxygen Delivery Method Room Air 01/17/24 09:27 BMI result Body Mass Index 28.0 General: Appears afebrile. Alert and oriented. Mood and affect appropriate. Follows and participates in conversation appropriately. Respiratory effort is unlabored. No cough. Able to transition from sit to stand unassisted. Ambulates with bilaterally normal heel strike and toe off without increase in pain. General: Yes no CVA tenderness Back/Spine/Pelvis Other: Patient is able to walk and stand on heels and tip toes with mild difficulty on the right otherwise demonstrating good motor tone. No limping. Can flex forward to 70-75 degrees and extend to 5-10 degrees before experiencing lumbar pain, mild increase in pain with forward flexion and bending. Demonstrates 5/5 strength of quadriceps bilaterally as well as flexion/dorsiflexion of bilateral feet against resistance. 2+ pedal pulses bilaterally. Seated straight leg rise with dorsiflexion positive on the right. +2 patellar and +1 achilles reflexes bilaterally. Facet loading test positive bilaterally. Fredrick sign, Jewel?s, Pelvic compression and Stinchfield tests are positive on the right. No groin pain with I/E hip rotations. Valsalva maneuver negative. Back: no CVA tenderness Cervical Spine: cervical ROM normal, No cervical muscular tenderness and No Cervical spine tenderness Thoracic/Lumbar Spine: thoracic and lumbar spine normal to inspection, No Thoracic/lumbar spine scar(s), Lasegue's sign positive (L5-S1) on the right and localized, pain with thoraco-lumbar ROM, paraspinal muscle tenderness on the right greater than left, thoraco-lumbar ROM limited, No thoracic spinal tenderness and lumbar spinal tenderness (L4-S1) Pelvis: buttock tenderness on the right Sacroiliac joints: on the right tender to palpation and on the left nontender Results Reviewed Results Reviewed: XR LUMBOSACRAL SPINE 07/31/23 CLINICAL INFORMATION: Lower back pain. COMPARISON: None available. TECHNIQUE: AP and lateral views of the lumbar spine and lateral view of the lumbosacral junction. FINDINGS: The vertebral bodies and posterior elements are normal. The disc spaces are preserved and the vertebral alignment is normal. There is minimal anterior spondylosis of the L5 upper and lower endplates. The paraspinal soft tissues are normal. IMPRESSION: There is minimal anterior spondylosis of the L5 upper and lower endplates. The examination is otherwise unremarkable. MR LUMBAR SPINE WITHOUT CONTRAST 01/01/24 CLINICAL INFORMATION: Lumbar radiculopathy. COMPARISON: Lumbar spine radiographs from 11/19/2023. TECHNIQUE: MRI of the lumbar spine was obtained using routine sequences without contrast. FINDINGS: Normal anatomic alignment. Moderate disc degeneration at L5-S1. Mild disc degeneration from T11-L5. There is a T2 hyperintense annular fissure at L5-S1. Associated mild mixed Modic type discogenic and plate changes including Modic type I discogenic edema from T11-L1. No additional suspicious marrow edema. The vertebral body heights are well-maintained. The conus medullaris terminates at the level of L1. The distal spinal cord is normal in appearance. Mild edema within the posterior paraspinal musculature from L4-S1. No additional significant abnormalities of the paraspinal musculature. Limited evaluation of the intra-abdominal structures without significant abnormalities. The abdominal aorta is of normal contour and caliber. AXIAL SPINAL LEVELS: L1-L2: Shallow diffuse disc bulge. There is mild bilateral facet joint arthropathy. There is mild to moderate bilateral neural foraminal stenosis. There is no spinal canal stenosis. L2-L3: Mild diffuse disc bulge. There is mild to moderate bilateral facet joint arthropathy. There is mild bilateral neural foraminal stenosis. There is mild narrowing of the subarticular zones with no overt spinal canal stenosis centrally. L3-L4: Shallow diffuse disc bulge. There is mild bilateral facet joint arthropathy. There is mild to moderate bilateral neural foraminal stenosis. There is narrowing of the subarticular zones with no overt spinal canal stenosis centrally. L4-L5: Mild diffuse disc bulge. There is moderate left and mild right facet joint arthropathy. There is moderate bilateral neural foraminal stenosis. There is stenosis of the subarticular zones with mild spinal canal stenosis centrally. L5-S1: Moderate diffuse disc bulge. There is mild bilateral facet joint arthropathy. There is moderate left worse than right neural foraminal stenosis. There is stenosis of the subarticular zones with moderate spinal canal stenosis centrally. IMPRESSION: Moderate multilevel degenerative spondyloarthropathy of the lumbar spine as described in detail above. Most notably, there is moderate spinal canal stenosis at L5-S1. Mild spinal canal stenosis at L4-L5. Narrowing/stenoses of the subarticular zones from L2-S1. Mild to moderate neural foraminal stenoses at all lumbar levels. Assessment & Plan Assessment & Plan (1) Back pain with right-sided radiculopathy: Comment: Patient recently completed course of physical therapy with mild improvement. Will give prednisone for radiculopathy. Will order MRI. Will refer to pain management. Code(s): M54.10 - Radiculopathy, site unspecified Category: Medical (2) Back pain with right-sided radiculopathy: Comment: Patient recently completed course of physical therapy with mild improvement. Will give prednisone for radiculopathy. Will order MRI. Will refer to pain management. Code(s): M54.10 - Radiculopathy, site unspecified Category: Medical (3) Discogenic low back pain: Code(s): M51.36 - Other intervertebral disc degeneration, lumbar region Category: Medical (4) Sacroiliac joint pain: Code(s): M53.3 - Sacrococcygeal disorders, not elsewhere classified Category: Medical (5) Lumbosacral spondylosis: Code(s): M47.817 - Spondylosis without myelopathy or radiculopathy, lumbosacral region Category: Medical Plan Lumbar spine MRI results reviewed with patient today, notable for moderate spinal canal stenosis at L5-S1 and moderate multilevel degenerative spondyloarthropathy. Discuss interventions for axial low back pain and right-sided radiculopathy posterioly. Patient reports his back pain has been minimal and currently rated at 1/10. We will hold off on any diagnostic or therapeutic injections at this time. Patient will notify our office when his pain returns to baseline. He reports pain improved since avoiding heavy lifting at his work. Patient is aware to call if pain worsens or if he develops any red flag symptoms to seek emergency care. Patient denies any cauda equina syndrome symptoms at this time. All questions and concerns have been answered and patient agreed with the plan. Follow up as needed. Coding Level of Care Code Est Pt Level 4 (58093) Diagnoses Back pain with right-sided radiculopathy M54.10 Discogenic low back pain M51.36 Sacroiliac joint pain M53.3 Lumbosacral spondylosis M47.817
[2024-01-17 09:27] VITALS: BP 156/90; PULSE 81; O2SAT 97; BMI 28.0
== END 2024-01-17 09:48 | disposition home or self-care (01) ==
PROVIDERS: PCP Nurse Practitioner Primary Care; Visit Provider Nurse Practitioner Family
DX: M54.10 Radiculopathy, site unspecified (principal); M51.36 Other intervertebral disc degeneration, lumbar region; M53.3 Sacrococcygeal disorders, not elsewhere classified; M47.817 Spondylosis without myelopathy or radiculopathy, lumbosacral region
CPT/HCPCS: 99214

== ENCOUNTER → 2024-01-17 09:19 | Outpatient (BNVA) | payer OTHER, SELFPAY | PROVIDERS: PCP Nurse Practitioner Primary Care; Visit Provider Nurse Practitioner Family | DX: M54.10 Radiculopathy, site unspecified (principal); M51.36 Other intervertebral disc degeneration, lumbar region; M53.3 Sacrococcygeal disorders, not elsewhere classified; M47.817 Spondylosis without myelopathy or radiculopathy, lumbosacral region | CPT/HCPCS: 99212 ==

== ENCOUNTER 2024-01-28 08:45 | Outpatient (REF) | payer OTHER, SELFPAY ==
[2024-01-28 10:14] LABS: MANUAL DIFF FLAG NO
[2024-01-28 10:17] LABS: Basophils Percent Auto 0.5 % (0-2); Eosinophils Absolute Auto 0.1 X10*3/uL (0.0-0.4); Eosinophils Percent Auto 1.4 % (0-4); Hematocrit 39.9 % (42.0-52.0); Hemoglobin 13.4 g/dl (14.0-18.0); Imm Gran Abs Auto 0.03 X10*3/uL (0.00-0.03); Imm Gran Pct Auto 0.4 % (0.0-0.4); Lymphocytes Absolute Auto 2.7 X10*3/uL (1.2-4.9); Lymphocytes Percent Auto 36.7 % (20-40); Mean Corpuscular HGB Conc 33.6 g/dl (31.0-36.0); Mean Corpuscular Hemoglobin 27.7 pg (27.0-33.0); Mean Corpuscular Volume 82.6 fL (80.0-98.0); Mean Platelet Volume 9.9 fL (9.4-12.4); Monocytes Absolute Auto 0.7 X10*3/uL (0.1-1.2); Monocytes Percent Auto 9.5 % (2-11); Neutrophils Absolute Auto 3.8 x10*3/uL (2.0-8.3); Neutrophils Percent Auto 51.5 % (45-73); Platelet Count 244 X10*3/uL (160-400); Red Blood Count 4.83 X10*6/uL (4.60-5.80); Red Cell Distribution Width 12.3 % (11.0-16.0); White Blood Count 7.4 X10*3/uL (4.8-10.8)
[2024-01-28 10:21] LABS: Appearance Urine Clear; Color Urine Dark Yellow; Glucose Urine UA Negative (Negative); Leukocyte Esterase Urine Negative (Negative); Nitrite Urine Negative (Negative); PH 5.5 (5.0-9.0); Specific Gravity - Urine >= 1.030 (1.005-1.025); Urine Blood Negative (Negative); Urine Ketones Trace mg/dL (Negative); Urine Protein Negative (Neg-Trace)
[2024-01-28 10:42] LABS: Alanine Aminotransferase 20 U/L (0-40); Albumin Level 4.8 g/dL (3.5-5.0); Alkaline Phosphatase 73 U/L (39-117); Anion Gap 15 (12-20); Aspartate Amino Transferase 17 U/L (5-37); Bilirubin Total 0.8 mg/dL (0.0-1.0); Blood Urea Nitrogen 14 mg/dL (9-16); Calcium 9.8 mg/dL (8.4-10.2); Carbon Dioxide 24 mmol/L (22-29); Chloride 107 mmol/L (96-108); Cholesterol 205 mg/dL (<200); Estimated Glomerular Filt Rate > 60; Glucose Random 90 mg/dL (60-115); HDL Cholesterol 38 mg/dL (>40); LDL Cholesterol Calculated 138 mg/dL (<100); Potassium 3.9 mmol/L (3.3-5.1); Sodium 142 mmol/L (135-145); Total Protein 7.5 g/dL (6.5-8.0); Triglycerides 148 mg/dL (<150)
[2024-01-28 10:54] LABS: PSA,Total (Free>4and<10) 1.22 ng/mL (0.00-4.00)
[2024-01-28 10:59] LABS: TSH reflex Free T4 2.09 uIU/mL (0.32-4.0)
[2024-01-28 13:09] LABS: Vitamin B12 488 pg/mL (200-900)
[2024-02-01 14:13] LABS: Vitamin D 25-OH, D2 <4 ng/mL; Vitamin D 25-OH, D3 35 ng/mL; Vitamin D 25-OH, Total 35 ng/mL (30-100)
[2024-02-03 16:09] LABS: Vitamin B6 32.8 ng/mL (2.1-21.7)
== END 2024-01-28 08:46 | disposition home or self-care (01) ==
LOC: HO.HMGCLDS 08:45
PROVIDERS: Visit Provider Nurse Practitioner Primary Care
DX: E86.0 Dehydration (principal); Z13.29 Encounter for screening for other suspected endocrine disorder; Z91.89 Other specified personal risk factors, not elsewhere classified; Z13.220 Encounter for screening for lipoid disorders; Z12.5 Encounter for screening for malignant neoplasm of prostate; Z13.21 Encounter for screening for nutritional disorder; Z13.0 Encounter for screening for diseases of the blood and blood-forming organs and certain disorders involving the immune mechanism
CPT/HCPCS: 36415; 80053; 80061; 81003; 82306; 82607; 84153; 84207; 84443; 85025

== ENCOUNTER 2024-04-09 11:53 | Outpatient (AMB) | payer OTHER, SELFPAY ==
[2024-04-09 12:29] VITALS: BP 134/82; PULSE 61; O2SAT 98; BMI 27.1
--- NOTE | 2024-04-09 12:29 | A.OFFPC_ITS ---
Vital Signs 04/09/24 12:29 Height 5 ft 8 in Weight 178 lb BMI 27.1 BP 134/82 Blood Pressure Location Lt brachial Position Sitting Pulse 61 Pulse Source Pulse Oximeter Pulse Oximetry (%) 98 Oxygen Delivery Method Room Air Intake Visit Reasons: Transfer from [facility] Intake Note: Pt is here today transfer from [facility]? b/p chcek Allergies No Known Allergies Allergy (Verified 04/09/24 12:35) Medication List - Last Reconciled 04/09/24 by Tigist Ceballos MD losartan 25 mg PO DAILY multivitamin 1 tab PO DAILY Tobacco use date assessed: 04/09/24 Dental Screening Dental Screen Date: 04/09/24 Did you have a dental visit in the last 12 months?: Yes Did you have a dental problem in the last 6 months where you did not have access to dental care?: No Was dental information given to patient?: Patient has dentist HPI Transfer from [facility] HPI Details 63-year-old male with hypertension, here to establish care with a new PCP. He has hypertension currently stable controlled on losartan 25 mg once a day. Has been feeling well, with no complaints of headache, no lightheadedness, no chest pain or shortness for breath. 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 Had recen fasting labs done which showed unremarkable findings except for elevated LDL and triglycerides and swell as elevated vitamin B6. Complains of intermittent episodes of numbness and tingling in right lower extremity when he wakes up in the morning, resolves when he starts walking around [facility] Medical History (Updated 04/09/24 @ 12:54 by Tigist Ceballos MD) Mixed dyslipidemia Hypervitaminosis B6 Work related injury Back pain with right-sided radiculopathy Sacroiliac joint pain Surgical History No pertinent past surgical history Social History Housing: House Patient Tobacco Use Status: Current everyday Tobacco user Cigarettes Per Day: 6 e-Cigarette/Vaping Use: Never Used service: No Current occupational status: employed Cognitive needs: No Hearing needs: No Vision needs: No Questionnaire PHQ-9 Over the last 2 weeks, how often have you been bothered by any of the following problems? 1. Little interest or pleasure in doing things: not at all 2. Feeling down, depressed, or hopeless: not at all 3. Trouble falling or staying asleep, or sleeping too much: not at all 4. Feeling tired or having little energy: not at all 5. Poor appetite or overeating: not at all 6. Feeling bad about yourself - or that you are a failure or have let yourself or your family down: not at all 7. Trouble concentrating on things, such as reading the newspaper or watching television: not at all 8. Moving or speaking so slowly that other people could have noticed. Or the opposite - being so fidgety or restless that you have been moving around a lot more than usual: not at all 9. Thoughts that you would be better off or of hurting yourself in some way: not at all Total score: 0 Depression Screening Interpretation: Negative Depression Screening Done: Yes 39471 - PHQ-9 Billing: Yes Source: Developed by Drs. Zain Cooper, Yuki Hansen, Rashi Clayton and colleagues, with an educational alejandra from [employer]. Thrive Questionnaire Date Thrive assessed: 04/09/24 I am a: Patient What is your living situation today?: I have a steady place to live Within the past 12 months, did the food you bought not last and you didn't have the money to get more?: Often true Within the past 12 months, did you worry whether your food would run out before you got money to buy more?: Never true Do you have trouble paying for medicines?: No Do you have trouble getting transportation to medical appointments?: No Do you have trouble paying your heating and electricity bill?: No Do you have trouble taking care of your child, family member or friend?: No Do you have trouble with day-to-day activities such as bathing, preparing meals, shopping, managing finances, etc.?: No Are you interested in more education?: No Please select the resources that you would like help with: None Currently or been in a relationship where the following occur: No concerns reported THRIVE Score: 1 AUDIT C Alcohol Use Questionnaire (AUDIT-C) 1. How often do you have a drink containing alcohol?: Monthly or less 2. How many drinks containing alcohol do you have on a typical day when you are drinking?: 1 or 2 3. How often do you have six or more drinks on one occasion?: Never Total Score: 1 YEFRI-7 AMB Questionnaire YEFRI-7 Date YEFRI - 7 assessed: 04/09/24 Feeling nervous, anxious, or on edge: 0 = Not at all Not being able to stop or control worryin = Not at all Worrying too much about different things: 0 = Not at all Trouble relaxin = Not at all Being so restless that it is hard to sit still: 0 = Not at all Becoming easily annoyed or irritable: 0 = Not at all Feeling afraid as if something awful might happen: 0 = Not at all Total YEFRI-7 score (0-4 normal; 5-9 mild; 10-14 moderate; 15-21 severe): 0 Source: Developed by Drs. Zain Cooper, Yuki Hansen, Rashi Clayton and colleagues, with an educational alejandra from [employer]. YEFRI-7 Assessment Billing YEFRI-7 Assessment Tool: YEFRI-7 Assessment 05419 Review of Systems Const Denies fatigue, Denies fever(s), Denies weakness and Reports weight gain Eyes Denies change in vision ENT Denies nasal congestion and Denies disequilibrium Card Denies chest pain, Denies lightheadedness, Denies palpitations and Denies dyspnea Resp Denies chest congestion, Denies cough, Denies dyspnea and Denies wheezing GI Denies abdominal pain, Denies change in bowel habits and Denies heartburn Denies hematuria, Denies difficulty urinating, Denies dysuria, Denies urinary frequency and Denies urinary urgency Musc Reports tingling (Right lower extremity pneumonia) Skin/Breast Denies lesions and Denies rash Neuro Reports tingling (Right lower extremity pneumonia), Reports paresthesias (Right lower extremity), Denies disequilibrium and Denies weakness Psych Reports no additional complaints Endo Denies fatigue, Denies polydipsia, Denies polyuria and Denies palpitations Ari/Lymph Denies easy bruising Aller/Immun Denies seasonal rhinorrhea and Denies wheezing Physical exam (Primary Care) Vital Signs: Last Vital Signs Pulse 61 04/09/24 12:29 BP 134/82 04/09/24 12:29 Pulse Ox 98 04/09/24 12:29 Oxygen Delivery Method Room Air 04/09/24 12:29 BMI result Body Mass Index 27.1 Tobacco/Smoking Status: Tobacco use Status Tobacco use date assessed 04/09/24 04/09/24 12:30 Patient Tobacco Use Status Current everyday Tobacco 04/09/24 12:30 e-Cigarette/Vaping Use Never Used 04/09/24 12:30 PHQ-9: PHQ-9 Score PHQ-9: Total score 0 04/09/24 12:38 Depression Screening Interpretation: Negative Thrive Assessment: Date of Thrive Assessment Date Thrive assessed 04/09/24 04/09/24 12:30 Currently or been in a relationship where the following occur: No concerns reported Const General: no acute distress and alert Orientation/consciousness: patient oriented x3 HENMT Ears: external ears normal General nose exam: Normal external nose present Mouth: Normal oral and palatal mucosa present, oropharynx normal and moist mucous membranes Eyes General: appearance normal, both eyes and all related structures Neck Neck: Yes full ROM, Yes no lymphadenopathy and Yes supple Resp Effort & Inspection: normal respiratory effort and able to speak in complete sentences Auscultation: clear to auscultation bilaterally Cardio Rate: regular rate Rhythm: regular rhythm Heart sounds: S1 normal heart sound present and S2 normal heart sound present GI Palpation (GI): Soft to palpation, nontender and no masses Auscultation: normal bowel sounds General: Yes no CVA tenderness Back/Spine/Pelvis Back: no CVA tenderness and No back tenderness Skin General skin exam: no rashes or lesions noted Neuro General: patient oriented x3, gait normal, tone normal, moves all extremities, Normal light touch and pain sensation and no focal motor deficits Cranial nerves: Yes CN's II-XII intact bilaterally Cognition (Neuro): normal cognition Extrem General: Yes full ROM, Yes no joint enlargement, Yes no clubbing, cyanosis or edema and Yes no calf tenderness Psych Appearance: grossly normal and well kempt Mental Status: mental status grossly normal Speech and movement: Normal speech and movement present Affect: normal affect Attitude: cooperative Thought process: Normal thought process present Thought content: Normal thought content present Results Reviewed Results Reviewed: Name: Oc Mtz Age/Sex: 63/M : 1960 Unit#: [id number] Attend Dr: Michelet Flores TUBE SKIVER Re01/28/24 Status: DEP REF Location: [facility] Disch: SPEC : [id number] GREG: 01/28/24 STATUS: COMP REQ : [id number] RECD: 01/28/24-[address]: Michelet Flores TUBE SKIVER COMP: 01/28/24-1058 ENTERED: 01/28/[address]: ORDERED: CMP, Lipid Panel, TSH Rflx Test Result Flag Reference Sodium 142 135-145 mmol/L Potassium 3.9 3.3-5.1 mmol/L CL 107 96-108 mmol/L CO2 24 22-29 mmol/L Gap 15 12-20 BUN 14 9-16 mg/dL Creat 0.80 0.5-1.4 mg/dL EGFR > 60 NOTE: For -Italian individuals, multiply the result by 1.210. Chronic Kidney Disease: Estimated GFR < 60 mL/min/1.73m2 Severe Kidney Disease: Estimated GFR < 15 mL/min/1.73m2 Glucose, Random 90 60-115 mg/dL CA 9.8 8.4-10.2 mg/dL Total Bili 0.8 0.0-1.0 mg/dL AST (GOT) 17 5-37 U/L ALT (GPT) 20 0-40 U/L Protein, Total 7.5 6.5-8.0 g/dL Alb 4.8 3.5-5.0 g/dL Triglyceride 148 <150 mg/dL Desirable Triglyceride: less than 150 mg/dL Borderline High Triglyceride 150-199 mg/dL High Triglyceride: 200-499 mg/dL Very High Triglyceride: greater than or equal to 5OO mg/dL Cholesterol 205 H <200 mg/dL Desirable Cholesterol: less than 200 mg/dL Borderline High Cholesterol: 200-239 mg/dL High Cholesterol: greater than 239 mg/dL LDL Calculated 138 H <100 mg/dL Desirable LDL: less than 100 mg/dL Near Optimal/Above Optimal LDL: 110-129 mg/dL Borderline High LDL: 130-159 mg/dL High LDL: 160-189 mg/dL Very High LDL: greater than or equal to 190 mg/dL HDL 38 L >40 mg/dL Desirable HDL: greater than 40 mg/dL Note: This HDL assay may give artificially low results in patients with liver disease. Alk Phos 73 39-117 U/L TSH 2.09 0.32-4.0 uIU/mL Coding Level of Care Code Est Pt Level 4 (06216) Complex EM visit Add On G2211 Diagnoses Primary hypertension I10 Hypertension type: primary hypertension Hypervitaminosis B6 E67.2 Mixed dyslipidemia E78.2 Additional Codes YEFRI-7 Assessment Billing - YEFRI-7 Assessment Tool: YEFRI-7 Assessment 02229 ([id number]) Assessment & Plan Assessment & Plan (1) Hypertension: Comment: will start patient on losartan 25 mg p.o. daily. Patient has been educated on side effects of this medication. Patient will return to office in 2 weeks for blood pressure recheck Code(s): I10 - Essential (primary) hypertension Category: Medical Qualifiers: Hypertension type: primary hypertension Qualified Code(s): I10 - Essential (primary) hypertension Plan: Blood pressure stable continue losartan 25 mg daily, reinforced importance of following a low-cholesterol diet and low-salt diet getting regular exercise (2) Hypervitaminosis B6: Code(s): E67.2 - Megavitamin-B6 syndrome Category: Medical Plan: Advised to stop taking any supplements for at least 2 weeks and see if his numbness tingling on l the right leg improves (3) Mixed dyslipidemia: Code(s): E78.2 - Mixed hyperlipidemia Category: Medical Plan: Reinforced importance of following a low cholesterol diet, try Mediterranean diet can get regular exercise,
== END 2024-04-09 13:38 | disposition home or self-care (01) ==
PROVIDERS: PCP Nurse Practitioner Primary Care; Visit Provider Internal Medicine
DX: I10 Essential (primary) hypertension (principal); E67.2 Megavitamin-B6 syndrome; E78.2 Mixed hyperlipidemia

== ENCOUNTER → 2024-04-09 11:53 | Outpatient (BNVA) | payer OTHER, SELFPAY | PROVIDERS: PCP Nurse Practitioner Primary Care; Visit Provider Internal Medicine | DX: I10 Essential (primary) hypertension (principal); E78.2 Mixed hyperlipidemia; E67.2 Megavitamin-B6 syndrome | CPT/HCPCS: 96127; 99212 ==

== ENCOUNTER 2025-04-14 14:11 | Outpatient (AMB) | payer OTHER, SELFPAY ==
--- NOTE | 2025-04-14 14:34 | A.OFFPC_ITS ---
Vital Signs 04/14/25 14:47 Height 5 ft 8 in Weight 171 lb BMI 26.0 BP 126/80 Blood Pressure Location Rt brachial Position Sitting Respiration 16 Pulse 78 Pulse Source Pulse Oximeter Temp 97.8 F Temp Source Oral Pulse Oximetry (%) 97 Oxygen Delivery Method Room Air Intake Visit Reasons: Annual PE Intake Note: Pt is here today for his PE: Allergies No Known Allergies Allergy (Verified 04/14/25 14:57) Medication List - Last Reconciled 04/14/25 by Tigist Ceballos MD No Known Home Meds Tobacco use date assessed: 04/14/25 Dental Screening Dental Screen Date: 04/14/25 Did you have a dental visit in the last 12 months?: Yes Did you have a dental problem in the last 6 months where you did not have access to dental care?: No Was dental information given to patient?: Patient has dentist HPI Annual PE HPI Details 64 year old male with history of hyperte nsion currently not on any medication at present time, here today for physical exam. Blood pressure today within normal limits. Fasting labs done a year ago showed presence of elevated LDL cholesterol and vitamin B6 and mild anemia noted. [facility] Medical History (Updated 04/14/25 @ 15:20 by Tigist Ceballos MD) Dyslipidemia Hypervitaminosis B6 Work related injury Back pain with right-sided radiculopathy Sacroiliac joint pain Surgical History No pertinent past surgical history Family History (Updated 04/14/25 @ 15:06 by Tigist Ceballos MD) Father No problems noted. Mother CVA (cerebral vascular accident) Social History Housing: House Patient Tobacco Use Status: Current everyday Tobacco user Cigarettes Per Day: 6 e-Cigarette/Vaping Use: Never Used service: No Current occupational status: employed Cognitive needs: No Hearing needs: No Vision needs: No Questionnaire PHQ-9 Over the last 2 weeks, how often have you been bothered by any of the following problems? 1. Little interest or pleasure in doing things: not at all 2. Feeling down, depressed, or hopeless: not at all 3. Trouble falling or staying asleep, or sleeping too much: not at all 4. Feeling tired or having little energy: not at all 5. Poor appetite or overeating: not at all 6. Feeling bad about yourself - or that you are a failure or have let yourself or your family down: not at all 7. Trouble concentrating on things, such as reading the newspaper or watching television: not at all 8. Moving or speaking so slowly that other people could have noticed. Or the opposite - being so fidgety or restless that you have been moving around a lot more than usual: not at all 9. Thoughts that you would be better off or of hurting yourself in some way: not at all Total score: 0 Depression Screening Interpretation: Negative Depression Screening Done: Yes 05729 - PHQ-9 Billing: Yes Source: Developed by Drs. Zain Cooper, Yuki Hansen, Rashi Clayton and colleagues, with an educational alejandra from [employer]. Thrive Questionnaire Date Thrive assessed: 04/14/25 I am a: Patient What is your living situation today?: I have a steady place to live Within the past 12 months, did the food you bought not last and you didn't have the money to get more?: Often true Within the past 12 months, did you worry whether your food would run out before you got money to buy more?: Never true Do you have trouble paying for medicines?: No Do you have trouble getting transportation to medical appointments?: No Do you have trouble paying your heating and electricity bill?: No Do you have trouble taking care of your child, family member or friend?: No Do you have trouble with day-to-day activities such as bathing, preparing meals, shopping, managing finances, etc.?: No Are you interested in more education?: No Please select the resources that you would like help with: None Currently or been in a relationship where the following occur: No concerns reported THRIVE Score: 1 YEFRI-7 AMB Questionnaire YEFRI-7 Date YEFRI - 7 assessed: 04/14/25 Feeling nervous, anxious, or on edge: 0 = Not at all Not being able to stop or control worryin = Not at all Worrying too much about different things: 0 = Not at all Trouble relaxin = Not at all Being so restless that it is hard to sit still: 0 = Not at all Becoming easily annoyed or irritable: 0 = Not at all Feeling afraid as if something awful might happen: 0 = Not at all Total YEFRI-7 score (0-4 normal; 5-9 mild; 10-14 moderate; 15-21 severe): 0 Source: Developed by Drs. Zain Cooper, Yuki Hansen, Rashi Clayton and colleagues, with an educational alejandra from [employer]. YEFRI-7 Assessment Billing YEFRI-7 Assessment Tool: YEFRI-7 Assessment 28266 Review of Systems Eyes Details: reading glasses ENT Details: dental cleaning q 6 months Physical exam (Primary Care) Vital Signs: Last Vital Signs Temp 97.8 F 04/14/25 14:47 Pulse 78 04/14/25 14:47 Resp 16 04/14/25 14:47 BP 126/80 04/14/25 14:47 Pulse Ox 97 04/14/25 14:47 Oxygen Delivery Method Room Air 04/14/25 14:47 BMI result Body Mass Index 26.0 Tobacco/Smoking Status: Tobacco use Status Tobacco use date assessed 04/14/25 04/14/25 14:36 Patient Tobacco Use Status Current everyday Tobacco 04/14/25 14:36 e-Cigarette/Vaping Use Never Used 04/14/25 14:36 PHQ-9: PHQ-9 Score PHQ-9: Total score 0 04/14/25 14:52 Depression Screening Interpretation: Negative Thrive Assessment: Date of Thrive Assessment Date Thrive assessed 04/14/25 04/14/25 14:36 Currently or been in a relationship where the following occur: No concerns repo rted Office Procedures Flu Questionnaire Does the patient have a severe egg allergy?: No Does the patient have severe life threatening allergies?: No Does the patient have a fever or illness today?: No Has the patient ever had Guillain-[place] Syndrome?: No Has the patient ever had any past reaction to a flu shot?: No Immunizations Fluarix [id number] (PF) 45 mcg (15 mcg x 3)/0.5 mL IM syringe Performing Provider: Tigist Ceballos MD Performing Location: [facility] Administered by: Carley Shell CMA on 04/14/25 15:03 Dose Route Admin Location Dispensed Lot Number Expiration Date [employer] 0.5 mL IM Right Deltoid 0.5 mL [id number] 04/14/25 15265-743-30 [facility] Given Date VIS Provided VIS Publication Date 04/14/25 Single Vaccine 24 Eligibility Eligibility Date Funding Source Not VFC Eligible 04/14/25 Private Coding Level of Care Code Est Pt Prev Care 40-64y(21984) Diagnoses Dyslipidemia E78.5 Hypervitaminosis B6 E67.2 Advance directive discussed with patient Z71.89 Annual visit for general adult medical examination with abnormal findings Z00.01 Additional Codes YEFRI-7 Assessment Billing - YEFRI-7 Assessment Tool: YEFRI-7 Assessment 71837 ([id number]) PHQ-9 - 65227 - PHQ-9 Billing: Yes ([id number]) Assessment & Plan Assessment & Plan (1) Dyslipidemia: Code(s): E78.5 - Hyperlipidemia, unspecified Category: Medical (2) Hypervitaminosis B6: Code(s): E67.2 - Megavitamin-B6 syndrome Category: Medical (3) Advance directive discussed with patient: Code(s): Z71.89 - Other specified counseling (4) Annual visit for general adult medical examination with abnormal findings: Code(s): Z00.01 - Encounter for general adult medical examination with abnormal findings Orders: Orders Influenza [id number] Immunization Today Z23 - Encounter for immunization Vitamin D 25-OH Total Today E78.5 - Hyperlipidemia, unspecified, Z13.1 - Encounter for screening for diabetes mellitus, Z86.39 - Personal history of other endocrine, nutritional and metabolic disease Lipid Panel Today E78.5 - Hyperlipidemia, unspecified, Z13.1 - Encounter for screening for diabetes mellitus, Z86.39 - Personal history of other endocrine, nutritional and metabolic disease Vitamin B6 Today E67.2 - Megavitamin-B6 syndrome PSA,Total (Free>4and<10) Today E78.5 - Hyperlipidemia, unspecified, Z13.1 - Encounter for screening for diabetes mellitus, Z86.39 - Personal history of other endocrine, nutritional and metabolic disease Glucose Fasting Today E78.5 - Hyperlipidemia, unspecified, Z13.1 - Encounter for screening for diabetes mellitus, Z86.39 - Personal history of other endocrine, nutritional and metabolic disease
[2025-04-14 14:47] VITALS: BP 126/80; PULSE 78; RESP 16; TEMP 36.6; O2SAT 97; BMI 26.0
--- OUTSIDE RECORDS SUMMARY | 2025-04-14 17:28 | XMS_ITS | Patient Health Record ---
Author Organization [facility] Address [address] [place] [address] Care Team Providers Care Ehs Specialist Name Role Phone Gopal ZUNIGA, Asma Primary Care Provider Zain Howard Unavailable [phone] Reason For Referral No Information Social History Tobacco Use: Social History Observation Description Date Details (start date - stop date) Current Smoker NA - NA Tobacco Use/Smoking Question Answer Notes Patient is a current smoker How often do you smoke cigarettes? every day How many cigarettes a day do you smoke? 11-20 How soon after you wake up do you smoke your fir st cigarette? 6-30 minutes Are you interested in quitting? Ready to quit Alcohol Screen Question Answer Notes Did you have a drink contain ing alcohol in the past year? Yes How often did you have a dri nk containing alcohol in the past year? Monthly or less (1 point) How many drinks did you have on a typical day when you were drinking in the past year? 3 or 4 drinks (1 point) How often did you have 6 or more drinks on one occasion in the past year? Never (0 point) Points 2 Interpretation Negative Section Notes: Smokes 1 ppd; no sig alcohol Problems Problem Type SNOMED Code ICD Code Onset Dates Problem Status W/U Status Risk Notes Problem [id number] Encounter for screening for malignant neoplasm of colon (Z12.11) Active confirmed Problem [id number] Preprocedural examination (Z01.818) Active confirmed Plan Of Treatment Pending Test Test Name Order Date GI BIOPSY 05/02/2018 Future Test Test Name Order Date COLONOSCOPY 03/13/2018 Insurance Providers Payer Name Payer Address Payer Phone Subscriber Number Group Number Insured Name Patient Relationship to Insured Coverage Start Date Coverage End Date [facility] [employer] [facility] [address] [address] [place], [place] [phone] [id number] ELOINA TODD Self - patient is the insured MEDICAID OF [facility] [address] [place] [address] [phone] [id number] ELOINATODD Sotelo Self - patient is the insured Medical (General) History Medical History History ICD Code Denies AR,DM,CVA,Lung disease,renal dise ase Hemorrhoids--had an evaluation at [facility] te
== END 2025-04-14 15:40 | disposition home or self-care (01) ==
PROVIDERS: PCP Internal Medicine; Visit Provider Internal Medicine
DX: Z23 Encounter for immunization (principal)

== ENCOUNTER → 2025-04-14 14:11 | Outpatient (BNVA) | payer OTHER, SELFPAY | PROVIDERS: PCP Internal Medicine; Visit Provider Internal Medicine | DX: Z00.01 Encounter for general adult medical examination with abnormal findings (principal); I10 Essential (primary) hypertension; E78.5 Hyperlipidemia, unspecified; E67.2 Megavitamin-B6 syndrome; F17.210 Nicotine dependence, cigarettes, uncomplicated; Z23 Encounter for immunization; Z71.89 Other specified counseling | CPT/HCPCS: 90471; 90656; 96127 ==